=== PATIENT | male | born 1990 | race Caucasian/White ===

== ENCOUNTER 2017-06-09 22:14 | Emergency (ER) | payer OTHER ==
[2017-06-09] MEDS ORDERED: IBUPROFEN 200 MG TAB PO ONE (22:29)
--- NOTE | 2017-06-09 22:38 | EDPHY ---
H & P Smoking Status: Never smoked Time Seen by Provider: 06/09/17 22:33 HPI/ROS: CHIEF COMPLAINT: Left shoulder dislocation HISTORY OF PRESENT ILLNESS: 26-year-old male presents to the emergency department by private vehicle with a dislocation of his left shoulder. Patient has a history of previous right shoulder dislocation requiring surgical repair twice. Patient was playing basketball today and collided with another player and dislocated his left shoulder. He is right-hand dominant. Denies paresthesias in his upper or lower extremities. Denies injury to his left elbow or left wrist. He denies head injury. Denies neck or back pain. Denies chest pain or difficulty breathing. REVIEW OF SYSTEMS: Constitutional: No fever, no chills. Eyes: No double or blurry vision. ENT: No sore throat. Respiratory: No cough, no shortness of breath. Cardiac: No chest pain. Gastrointestinal: No abdominal pain, vomiting or diarrhea. Genitourinary: No dysuria. Musculoskeletal: No neck or back pain. Skin: No rashes. Neurological: No headache. (Natalia Monterroso) Past Medical/Surgical History: Orthopedic surgery right shoulder (Natalia Monterroso) Social History: Single (Natalia Monterroso) Physical Exam: General Appearance: Alert, no distress. Diaphoretic Eyes: Pupils equal and round. Extraocular motions are all intact. ENT: Mouth: Mucous membranes moist. Respiratory: No wheezing, rhonchi, or rales, lungs are clear to auscultation. Cardiovascular: Regular rate and rhythm. Gastrointestinal: Abdomen is soft and nontender, no masses, no rebound or guarding, bowel sounds normal. Neurological: Alert and oriented x 3, cranial nerves II through XII grossly intact Skin: Warm and dry, no rashes. Musculoskeletal: Nontender to palpate along the cervical, thoracic or lumbar spine. Neck is supple. Extremities: Obvious deformity noted to the left shoulder. No palpable bony tenderness. Limited range of motion of the left shoulder secondary to pain. Full range of motion of the left elbow and left wrist. Normal sensation to light touch with normal 2 point discrimination in his left hand. He does have some mild decreased sensation to the lateral aspect of the left proximal humerus. Psychiatric: Patient is oriented X 3, there is no agitation. (Natalia Monterroso) Constitutional: Initial Vital Signs Temperature (C) 36.7 C 08/15/17 22:16 Heart Rate 107 H 06/09/17 22:16 Respiratory Rate 18 06/09/17 22:16 Blood Pressure 162/94 H 06/09/17 22:16 O2 Sat (%) 92 06/09/17 22:16 O2 Delivery Mode Room Air Allergies/Adverse Reactions: No Known Allergies Allergy (Unverified 02/12/15 23:15) Home Medications: Medication Instructions Recorded NK [No Known Home Meds] 06/09/17 Medical Decision Making - Diagnostics Imaging: I viewed and interpreted images myself - Diagnostics Imaging Results: Imaging Impressions Shoulder X-Ray 06/09/17 22:28 Impression: Nothing acute radiographically. Procedures: After consent was obtained from the patient, the patient was sitting upright with his left hand placed on the superior aspect of my left shoulder and with gentle massage and gentle retraction, the left shoulder was easily reduced. The patient tolerated this quite well. Patient was placed in a sling and examined post application in good placement with normal [employer]. (Natalia Monterroso) Procedure: Procedural sedation. Indication: Right shoulder fracture dislocation. A pre-sedation evaluation was completed on the patient just prior to the procedure. Patient is an appropriate candidate for procedural sedation with ASA class 1 E. The risks of the sedation were discussed including but not limited to dysrhythmia, need for airway intervention or general anesthesia, disability, ; and verbal consent obtained. A timeout was observed and patient's identity confirmed. The patient was sedated with propofol and fentanyl. The patient was monitored with continuous pulse oximetry, capnography , and panel monitor. There were no complications and no significant hypoxemia. I remained at the bedside for the sedation. The total time I spent in the procedural sedation was 20 minutes. (Tien Carnes) ED Course/Re-evaluation: 26-year-old male presents with dislocation of his left shoulder the shoulder was easily reduced, see procedure note. He was placed in a sling and given orthopedic referral. Post reduction x-rays reveal no fractures. (Natalia Monterroso) Differential Diagnosis: Including but not limited to fracture, dislocation, contusion, sprain (Natalia Monterroso) - Data Points Medications Given: Discontinued Medications Ibuprofen (Motrin) 800 mg PO EDNOW ONE Stop: 06/09/17 22:30 Last Admin: 06/09/17 22:38 Dose: 800 mg Departure - Departure Disposition: Home, Routine, Self-Care Clinical Impression: Dislocation of left shoulder joint Qualifiers: Encounter type: initial encounter Qualified Code(s): S43.005A - Unspecified dislocation of left shoulder joint, initial encounter Condition: Good Instructions: Shoulder Dislocation (ED) Additional Instructions: Keep sling on until follow-up with orthopedic surgeon. Ibuprofen 600 mg every 8 hours as needed for pain. Referrals: Dale Estrada MD [Medical Doctor] - 5-7 days, call for appt. ([facility] orthopedic surgeon)
[2017-06-09 22:56] VITALS: BP 143/95; PULSE 88; RESP 17; TEMP 97.9; O2SAT 94
== END 2017-06-09 23:04 | disposition home or self-care (01) ==
PROC: 0RSKXZZ Reposition Left Shoulder Joint, External Approach (ICD-10-PCS; principal; 2017-06-09)
DX: S43.005A Unspecified dislocation of left shoulder joint, initial encounter (principal); W50.0XXA Accidental hit or strike by another person, initial encounter; Y93.67 Activity, basketball

== ENCOUNTER 2018-07-31 02:22 | Emergency (ER) | payer SELFPAY ==
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
[2018-07-31 02:36] VITALS: BP 141/95
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
== END 2018-07-31 02:35 | disposition home or self-care (01) ==
LOC: EDUNIT#
DX: M25.511 Pain in right shoulder (principal); F10.920 Alcohol use, unspecified with intoxication, uncomplicated; Y35.93XA Legal intervention, means unspecified, suspect injured, initial encounter